=== PATIENT | female | born 1950 | race Native Hawaiian/Other Pacific Islander ===

== ENCOUNTER 2022-07-16 20:52 | Emergency (ER) | payer OTHER ==
[~2022-07-16] VITALS: Ht 172.7 cm; Wt 103.2 kg
[2022-07-16 20:55] VITALS: TEMP 97.8
[2022-07-16 21:11] LABS: PLATELET COUNT 195 K/uL (152-353)
[2022-07-16 21:35] LABS: POTASSIUM 4.1 mmol/L (3.6-5.2)
[2022-07-17 02:15] VITALS: BP 92/66
== END 2022-07-17 02:15 | disposition short-term general hospital (02) ==
LOC: ED 20:52
PROVIDERS: Emergency Medicine
DX: N19 Unspecified kidney failure (principal); I44.2 Atrioventricular block, complete; Z11.52 Encounter for screening for COVID-19; I50.9 Heart failure, unspecified
CPT/HCPCS: 36415; 80053; 83735; 83880; 84484; 85027; 87635; 93005; 96360; 96372; 99284; J0171; J2060; U0003